=== PATIENT | male | born 1960 | race Caucasian/White ===

== ENCOUNTER 2019-08-25 10:09 | Emergency (ER) | payer BC ==
[~2019-08-25] VITALS: Ht 180.3 cm; Wt 77.3 kg
[2019-08-25 11:32] LABS: HEMATOCRIT 48.3 % (42.0-52.0); HEMOGLOBIN 16.5 g/dl (13.5-18.0); MEAN CELL VOLUME 91 fl (80.0-100.0); MEAN CORPUSCULAR HEMOGLOBIN 31 pg (27.0-31.0); MEAN CORPUSCULAR HGB CONC 34 g/dl (33.0-37.0); MEAN PLATELET VOLUME 9.8 fl (7.4-10.4); PLATELET COUNT 165 K/mm3 (130-400); RED BLOOD COUNT 5.31 M/mm3 (4.20-5.60); REDCELL DISTRIBUTION WIDTH-CV 11.9 % (11.5-14.5)
[2019-08-25] MEDS ORDERED: VERAPAMIL 440 MG/TAB PO (11:35)
[2019-08-25] MEDS ORDERED: LIPITOR 40MG TA40 MG PO (11:35)
[2019-08-25] MEDS ORDERED: ELIQUIS 5MG PO (11:36)
[2019-08-25] MEDS ORDERED: TENORMIN 5050 MG/TAB PO (11:36)
[2019-08-25 11:43] LABS: ALANINE AMINOTRANSFERASE 35 U/L (21-72); ALBUMIN 4.3 gm/dL (3.5-5.0); ALKALINE PHOSPHATASE 70 U/L (50-136); ANION GAP 8 mmol/L (7-16); AST,SGOT 34 U/L (15-37); BILIRUBIN,TOTAL 1.1 mg/dL (0.0-1.0); BLOOD UREA NITROGEN 16 mg/dL (9-20); CALCIUM 9.1 mg/dL (8.4-10.2); CARBON DIOXIDE 23 mmol/L (22-30); CHLORIDE 110 mmol/L (98-107); CREATININE, serum 0.86 (0.66-1.25); GLUCOSE 115 mg/dL (74-106); LIPASE 54 U/L (23-300); POTASSIUM 4.2 mmol/L (3.4-5.0); SODIUM 141 mmol/L (137-145); TOTAL PROTEIN 7.3 gm/dL (6.4-8.2)
[2019-08-25 11:57] LABS: BAND 6 % (0-10); EOSINOPHIL 1 % (0-4); LYMPHOCYTE 5 % (20.0-51.0); NEUTROPHILS 86 % (42.0-75.2); PLATELET ESTIMATE NORMAL (NORMAL)
[2019-08-25 12:09] LABS: TROPONIN-I < 0.012 ng/mL (0.000-0.035)
[2019-08-25] MEDS ORDERED: PHENERGAN 25 TA25 MG PO (14:17)
[2019-08-25 14:25] VITALS: BP 104/75; PULSE 66; TEMP 98.7
== END 2019-08-25 14:36 | disposition home or self-care (01) ==
LOC: COL.ER 10:09
PROVIDERS: Emergency Medicine
DX: R19.7 Diarrhea, unspecified (principal); R11.0 Nausea; R07.89 Other chest pain; Z95.0 Presence of cardiac pacemaker; Z98.890 Other specified postprocedural states
CPT/HCPCS: J2405; J2550; J7030